=== PATIENT | female | born 1990 | race Two or more races ===

== ENCOUNTER 2018-09-03 16:40 | Observation (INO) | payer MEDICAID, OTHER ==
[~2018-09-03] VITALS: Ht 142.2 cm; Wt 68.0 kg
[2018-09-03] MEDS ORDERED: TERBUTALINE SULFATE 1 MG/ML 1ML VIAL SC ONE (17:30)
[2018-09-03] MEDS ORDERED: PREN-96 PO (17:38)
[2018-09-03 17:43] LABS: Basophils # (auto) 0.1 uL; Basophils % (auto) 0.7 % (0.0-2.0); Eosinophils # (auto) 0.1 uL; Eosinophils % (auto) 0.5 % (0.0-7.0); Hematocrit 41.6 % (36.0-46.0); Lymphocytes # (auto) 1.6 uL; Lymphocytes % (auto) 12.6 % (10.0-50.0); Mean Corpuscular Hemoglobin 29.1 pg (28.0-32.0); Mean Corpuscular Hgb Conc. 33.6 g/dL (32.0-36.0); Mean Corpuscular Volume 86.5 fL (80.0-100.0); Monocytes # (auto) 0.7 uL; Monocytes % (auto) 5.9 % (0.0-12.0); Neutrophils % (auto) 80.3 % (37.0-80.0); Platelet Count (auto) 184 10^3/uL (140-450); Red Blood Cells 4.81 10^6/uL (4.0-5.20); Red Cell Distribution Width 13.8 % (11.8-14.3); White Blood Cell 12.5 10^3/uL (4.4-10.8)
[2018-09-03 17:55] LABS: Albumin 2.5 g/dL (3.4-5.0); Calcium 8.4 mg/dL (8.5-10.1); Potassium 3.8 mmol/L (3.5-5.1); Uric Acid 6.2 mg/dL (2.6-6.0)
[2018-09-03 18:00] LABS: BUN/Creatinine Ratio 20.6; Bilirubin, Total 0.3 mg/dL (0.2-1.0); INR 0.84 (0.9-1.15); Prothrombin Time 9.1 sec (9.27-12.13); Total Protein 6.7 g/dL (6.4-8.2)
[2018-09-03] MEDS ORDERED: BETAMETHASONE ACET (6MG/ML) 5ML VIAL IM ONE (18:15)
[2018-09-03 18:29] LABS: Urine Bacteria NONE SEEN /hpf (None Seen); Urine Blood TRACE /uL (Negative); Urine Hyaline Cast FEW /lpf (0 - 2); Urine Mucus FEW (None Seen); Urine Specific Gravity 1.021 (1.001-1.035); Urine WBC 2 /hpf (0 - 5)
[2018-09-03] MEDS: LACTATED RINGER'S 1,000 ML IV SCH ×2 (18:45→22:04)
[2018-09-03] MEDS ORDERED: LACTATED RINGER'S 1,000 ML IV ONE (18:46)
[2018-09-03] MEDS: TERBUTALINE SULFATE 1 MG/ML 1ML VIAL SC SCH ×2 (19:55→20:17)
[2018-09-06] MEDS ORDERED: NIF10C GT (08:33)
== END 2018-09-03 23:30 | disposition home or self-care (01) | DRG 566 ==
LOC: LDRP 16:40
PROVIDERS: ADMIT Specialist; ATTEND Specialist
DX: O26.893 Other specified pregnancy related conditions, third trimester (principal); H53.8 Other visual disturbances; Z3A.35 35 weeks gestation of pregnancy
CPT/HCPCS: 36415; 59025; 76805; 80053; 81001; 81002; 84550; 85025; 85610; 85730; 96372; G0378; J0702; J3105; 96365; 96366

== ENCOUNTER 2018-09-04 17:50 | Observation (INO) | payer MEDICAID ==
[~2018-09-04] VITALS: Ht 144.8 cm; Wt 81.6 kg
[~2018-09-04 17:50] MED LIST: PREN-96 PO
[2018-09-04] MEDS ORDERED: BETAMETHASONE ACET (6MG/ML) 5ML VIAL IM ONE (18:15)
[2018-09-04] MEDS ORDERED: NIFEdipine 10 MG CAP PO ONE ×2 (19:00)
[2018-09-06] MEDS ORDERED: NIF10C GT (08:33)
== END 2018-09-04 19:57 | disposition home or self-care (01) | DRG 566 ==
LOC: LDRP 17:50
PROVIDERS: ADMIT Specialist; ATTEND Specialist
DX: O13.3 Gestational [pregnancy-induced] hypertension without significant proteinuria, third trimester (principal); O60.03 Preterm labor without delivery, third trimester; O26.893 Other specified pregnancy related conditions, third trimester; N89.8 Other specified noninflammatory disorders of vagina; Z3A.35 35 weeks gestation of pregnancy
CPT/HCPCS: 59025; 81002; 96372; G0378

== ENCOUNTER 2018-09-05 20:53 | Observation (INO) | payer MEDICAID ==
[2018-09-06] MEDS ORDERED: NIF10C GT (08:33)
== END 2018-09-05 22:50 | disposition home or self-care (01) | DRG 563 ==
LOC: LDRP 20:53
PROVIDERS: ADMIT Specialist; ATTEND Specialist
DX: O60.03 Preterm labor without delivery, third trimester (principal); O26.893 Other specified pregnancy related conditions, third trimester; R06.02 Shortness of breath; Z3A.35 35 weeks gestation of pregnancy
CPT/HCPCS: 59025; 76818; 81002; G0378

== ENCOUNTER 2021-10-18 21:28 | Emergency (ER) | payer MEDICAID ==
[~2021-10-18] VITALS: Ht 144.8 cm; Wt 65.8 kg
[~2021-10-18 21:28] MED LIST changes: +DOCU-94 PO; +LABE200T7 PO; +NIF10C GT
[2021-10-18 22:09] LABS: Basophils # (auto) 0.1 10 ^3/uL (0-0.2); Basophils % (auto) 0.6 % (0.0-2.0); Eosinophils # (auto) 0.1 10 ^3/uL (0-0.8); Eosinophils % (auto) 0.5 % (0.0-7.0); Hematocrit 41.6 % (36.0-46.0); Hemoglobin 14.4 g/dL (12.2-16.2); Lymphocytes # (auto) 0.9 10 ^3/uL (0.4-5.4); Lymphocytes % (auto) 7.5 % (10.0-50.0); Mean Corpuscular Hemoglobin 29.6 pg (28.0-32.0); Mean Corpuscular Hgb Conc. 34.7 g/dL (32.0-36.0); Mean Corpuscular Volume 85.3 fL (80.0-100.0); Monocytes # (auto) 0.6 10 ^3/uL (0-1.3); Monocytes % (auto) 4.7 % (0.0-12.0); Neutrophils # (auto) 10.4 10 ^3/uL (1.6-8.6); Neutrophils % (auto) 86.7 % (37.0-80.0); Red Blood Cells 4.87 10^6/uL (4.0-5.20); Red Cell Distribution Width 13.3 % (11.8-14.3)
[2021-10-18 22:30] LABS: BUN/Creatinine Ratio 14.7; Magnesium 2.2 mg/dL (1.6-2.6); Potassium 3.6 mmol/L (3.5-5.1)
[2021-10-18 23:11] LABS: Urine Bacteria FEW /hpf (None Seen); Urine Blood Negative /uL (Negative); Urine Mucus FEW (None Seen); Urine Specific Gravity 1.027 (1.001-1.035); Urine WBC 5 /hpf (0 - 5)
[2021-10-19 01:52] VITALS: BP 120/82
[2021-10-19] MEDS ORDERED: LIDOCAINE 5% TOPICAL PATCH TOP ONE (02:00)
[2021-10-19] MEDS ORDERED: ACETAMINOPHEN 325 MG TAB PO ONE (02:00)
== END 2021-10-19 04:05 | disposition home or self-care (01) ==
LOC: ER 21:28
DX: R51.9 Headache, unspecified (principal); M54.41 Lumbago with sciatica, right side; Z79.899 Other long term (current) drug therapy
CPT/HCPCS: 36415; 80048; 81001; 82150; 83690; 83735; 84702; 85025